=== PATIENT | female | born 1970 | race African-American/Black ===

== ENCOUNTER 2024-04-26 14:37 | Emergency (ER) | payer MEDICAID ==
[~2024-04-26] VITALS: Ht 175.3 cm; Wt 150.0 kg
[2024-04-26 14:39] VITALS: BP 172/96; RESP 18; TEMP 97.5; O2SAT 98
[2024-04-26] MEDS: buprenorphine/naloxone 8MG-2MG SUBlingual film SL ONE (16:29)
== END 2024-04-26 16:32 | disposition home or self-care (01) ==
LOC: ER 14:38
DX: Z51.81 Encounter for therapeutic drug level monitoring (principal); Z79.899 Other long term (current) drug therapy
CPT/HCPCS: 99282

== ENCOUNTER 2024-07-11 12:55 | Inpatient (IN) | payer MEDICAID ==
[~2024-07-11] VITALS: Ht 177.8 cm; Wt 147.2 kg
[2024-07-11 14:34] LABS: BASOPHILS # (AUTO) 0.1 X10'3 (0-0.2); BASOPHILS % (AUTO) 0.9 % (0-1); EOSINOPHILS # (AUTO) 0.4 X10'3 (0-0.9); EOSINOPHILS % (AUTO) 5.2 % (0-6); HEMATOCRIT 49.1 % (35.0-45.0); HEMOGLOBIN 16.1 g/dl (12.0-16.0); LYMPHOCYTES # (AUTO) 2.2 X10'3 (1.1-4.8); LYMPHOCYTES % (AUTO) 31.4 % (21-51); MEAN CORPUSCULAR HGB CONC 32.7 g/dL (33.0-36.5); MEAN CORPUSCULAR VOLUME 82.5 FL (78-98); MEAN PLATELET VOLUME 7.9 FL (7.4-10.4); MONOCYTES # (AUTO) 0.7 X10'3 (0-0.9); MONOCYTES % (AUTO) 9.4 % (2-12); NEUTROPHILS # (AUTO) 3.7 X10'3 (1.8-7.7); NEUTROPHILS % (AUTO) 53.1 % (42-75); PLATELET COUNT 261 X10'3 (140-440); RED BLOOD COUNT 5.95 X10'6 (4.20-5.60); RED CELL DISTRIBUTION WIDTH 14.2 % (11.5-14.5)
[2024-07-11 14:50] LABS: ALANINE AMINOTRANSFERASE 52 U/L (12-78); ALBUMIN 3.4 G/DL (3.4-5.0); ALBUMIN/GLOBULIN RATIO 0.8 (1.1-1.5); ALKALINE PHOSPHATASE 139 IU/L (46-116); ANION GAP 3 (8-16); ASPARTATE AMINO TRANSFERASE 35 U/L (10-37); BILIRUBIN,TOTAL 0.4 MG/DL (0.1-1.0); BLOOD UREA NITROGEN 12 MG/DL (7-18); BUN/CREATININE RATIO 16.7 (10.0-20.0); CHLORIDE 105 MMOL/L (99-107); CREATININE 0.72 MG/DL (0.40-0.90); GLUCOSE 97 MG/DL (70-104); LIPASE 24 U/L (16-77); POTASSIUM 4.4 MMOL/L (3.5-5.1); SODIUM 141 MMOL/L (135-145); TOTAL CARBON DIOXIDE 33.1 MMOL/L (24-32); TOTAL PROTEIN 7.7 G/DL (6.4-8.2); eCRCL 98 ML/MIN; eGFR > 90 ML/MIN
[2024-07-11 15:43] LABS: BILIRUBIN,URINE NEGATIVE (Neg); COLOR,URINE YELLOW (Yellow); GLUCOSE, URINE NEGATIVE (Neg); KETONES,URINE NEGATIVE (Neg); LEUKOCYTE ESTERASE ,URINE NEGATIVE (Neg); NITRITES, URINE NEGATIVE (Neg); OCCULT BLOOD,URINE NEGATIVE (Neg); PH,URINE 5.5 (4.8-8.0); PROTEIN,URINE NEGATIVE (Neg); URINE HCG NEGATIVE (NEG); UROBILINOGEN,URINE 0.2 E.U/dL (0.2-1.0)
[2024-07-11 16:01] LABS: CLARITY,URINE SLIGHTLY CLOUDY (Clear); UA COLLECTION TYPE CLN CATCH MIDSTREAM
[2024-07-11 16:05] LABS: BACTERIA,URINE 1+ /HPF (Neg); RBC,URINE 0-2 /HPF (0-2); SQUAMOUS EPITHELIAL CELL,UR MANY /LPF (FEW)
[2024-07-11 16:06] LABS: MUCUS STRANDS MODERATE /LPF (Neg)
[2024-07-11] MEDS: ketorolac trometh 30MG/ML vial 30 MG/ML VIAL IM ONE (16:08)
[2024-07-11] MEDS: dicyclomine 10 MG capsule PO ONE (16:08)
[2024-07-11 16:21] LABS: APTT 28 SECONDS (22-32); PROTHROMBIN TIME 10.4 SECONDS (9.0-12.0)
[2024-07-11] MEDS ORDERED: magnesium Cl slow-release 64mg tablet PO PRN (17:55)
[2024-07-11] MEDS ORDERED: magnesium sulf-water 4G/100mL 100 ML IV PRN (17:55)
[2024-07-11] MEDS ORDERED: potassium Cl 20 mEq SR tablet PO PRN ×2 (17:55)
[2024-07-11] MEDS ORDERED: potassium Cl 40MEQ/1/2NS 520ml 520 ML IV PRN (17:55)
[2024-07-11] MEDS ORDERED: ondansetron/PF 4mg/2ml inj IV PRN (17:55)
[2024-07-11] MEDS ORDERED: mag hydrox/Alum hydrox/simeth 30ml oral suspension PO PRN (17:55)
[2024-07-11] MEDS ORDERED: magnesium hydroxide 30ml (MOM) UD suspension PO PRN (17:55)
[2024-07-11] MEDS ORDERED: magnesium sulf-water 2g/50mL 50 ML IV PRN (17:55)
[2024-07-11] MEDS ORDERED: acetaminophen 325mg tablet PO PRN (17:55)
[2024-07-11] MEDS: piperacillin/tazo 3.375gm/50ml 50 ML IV ONE ×2 (17:58)
[2024-07-11 18:25] LABS: HEMOGLOBIN A1C 5.8 % (4.5-6.2)
[2024-07-11] MEDS ORDERED: METF-517 PO (19:32)
[2024-07-11] MEDS ORDERED: BUPR8TAB4 SL (19:32)
[2024-07-11] MEDS ORDERED: BUPR-561 (19:32)
[2024-07-11] MEDS ORDERED: FLUO40CA (19:32)
[2024-07-11] MEDS ORDERED: GLEC1TAB (19:32)
[2024-07-11] MEDS ORDERED: LOSA50TA64 (19:32)
[2024-07-11] MEDS: K and/or MAG REPLACEMENT MC SCH (20:00)
[2024-07-11] MEDS: docusate sod 100mg capsule PO SCH (20:00)
[2024-07-11] MEDS: morphine 2 MG/ML inj. syringe IV PRN (20:33)
[2024-07-11] MEDS: dextrose 5%-1/2 normal saline 1,000 ML IV SCH (20:35)
[2024-07-11 21:00] VITALS: BP 151/88; PULSE 57; RESP 16; RESP 20; TEMP 97.3; O2SAT 96; O2SAT 99
[2024-07-12] MEDS: piperacillin/tazo 4.5gm/100ml 100 ML IV SCH (00:28)
[2024-07-12 05:34] LABS: BASOPHILS % (AUTO) 0.1 % (0-1); EOSINOPHILS # (AUTO) 0.3 X10'3 (0-0.9); EOSINOPHILS % (AUTO) 5.7 % (0-6); HEMATOCRIT 46.6 % (35.0-45.0); HEMOGLOBIN 15.4 g/dl (12.0-16.0); LYMPHOCYTES # (AUTO) 2.1 X10'3 (1.1-4.8); LYMPHOCYTES % (AUTO) 35.2 % (21-51); MEAN CORPUSCULAR HEMOGLOBIN 27.2 PG (27.0-31.0); MEAN CORPUSCULAR VOLUME 82.4 FL (78-98); MEAN PLATELET VOLUME 7.6 FL (7.4-10.4); MONOCYTES # (AUTO) 0.5 X10'3 (0-0.9); MONOCYTES % (AUTO) 8.1 % (2-12); NEUTROPHILS % (AUTO) 50.9 % (42-75); PLATELET COUNT 237 X10'3 (140-440); RED BLOOD COUNT 5.66 X10'6 (4.20-5.60); RED CELL DISTRIBUTION WIDTH 13.6 % (11.5-14.5)
[2024-07-12 05:47] LABS: ALANINE AMINOTRANSFERASE 45 U/L (12-78); ALBUMIN 3.1 G/DL (3.4-5.0); ALBUMIN/GLOBULIN RATIO 0.8 (1.1-1.5); ALKALINE PHOSPHATASE 120 IU/L (46-116); ANION GAP 7 (8-16); ASPARTATE AMINO TRANSFERASE 39 U/L (10-37); BILIRUBIN,TOTAL 0.7 MG/DL (0.1-1.0); BLOOD UREA NITROGEN 12 MG/DL (7-18); BUN/CREATININE RATIO 13.3 (10.0-20.0); CALCIUM 8.8 MG/DL (8.5-10.1); CHLORIDE 106 MMOL/L (99-107); CHOL/HDL RATIO 2.8 (0.00-4.99); CHOLESTEROL 167 MG/DL (0-200); GLUCOSE 97 MG/DL (70-104); HDL CHOLESTEROL 59 MG/DL (35-60); LDL CHOLESTEROL 91 MG/DL (50-100); MAGNESIUM 1.7 MG/DL (1.5-2.4); SODIUM 142 MMOL/L (135-145); TOTAL CARBON DIOXIDE 29.5 MMOL/L (24-32); TOTAL PROTEIN 7.2 G/DL (6.4-8.2); TRIGLYCERIDES 101 MG/DL (20-135); eCRCL 78 ML/MIN; eGFR 79 ML/MIN
[2024-07-12 06:00] VITALS: BP 140/80; PULSE 80; RESP 16; TEMP 97.8; O2SAT 95
[2024-07-12] MEDS: enoxaparin 40mg/0.4ml syringe SUBCUT SCH (08:00)
[2024-07-12] MEDS: morphine 2 MG/ML inj. syringe IV PRN (09:40)
[2024-07-12] MEDS: nicotine 14mg patch - 24hr TD SCH (10:47)
[2024-07-12] MEDS: FLUoxetine 20mg capsule PO SCH (10:48)
[2024-07-12] MEDS: BUPROPION HCL 150MG XL 24 HR 150 MG TAB PO SCH (10:48)
[2024-07-12 10:53] LABS: BILIRUBIN,URINE NEGATIVE (Neg); CLARITY,URINE CLEAR (Clear); COLOR,URINE YELLOW (Yellow); GLUCOSE, URINE NEGATIVE (Neg); KETONES,URINE NEGATIVE (Neg); LEUKOCYTE ESTERASE ,URINE NEGATIVE (Neg); NITRITES, URINE NEGATIVE (Neg); OCCULT BLOOD,URINE NEGATIVE (Neg); PROTEIN,URINE NEGATIVE (Neg); UROBILINOGEN,URINE 0.2 E.U/dL (0.2-1.0)
[2024-07-12 11:01] LABS: UA COLLECTION TYPE NON-SPECIFIED
[2024-07-12 11:08] VITALS: BP 137/95; PULSE 58; RESP 16; TEMP 98.2; O2SAT 93
[2024-07-12] MEDS: metFORMIN 500mg tablet PO SCH (12:00)
[2024-07-12] MEDS: BUPRENORPHINE HCL 8 MG SL SCH (13:00)
[2024-07-12 18:00] VITALS: BP 145/82; PULSE 64; RESP 16; TEMP 98.5; O2SAT 94
[2024-07-12] MEDS: HYDROcodone/acetaminophen 5mg/325mg tablet PO PRN (21:06)
[2024-07-12 22:00] VITALS: BP 153/86; PULSE 59; RESP 16; TEMP 98.6; O2SAT 98
[2024-07-13] VITALS (8 sets, daily range): BP systolic 144–175; BP diastolic 65–111; PULSE 54–83; RESP 10–18; TEMP 97–98.8; O2SAT 91–99
[2024-07-13 04:59] LABS: BASOPHILS # (AUTO) 0.1 X10'3 (0-0.2); EOSINOPHILS # (AUTO) 0.3 X10'3 (0-0.9); EOSINOPHILS % (AUTO) 5.5 % (0-6); HEMATOCRIT 47.1 % (35.0-45.0); HEMOGLOBIN 15.7 g/dl (12.0-16.0); LYMPHOCYTES % (AUTO) 31.8 % (21-51); MEAN CORPUSCULAR HEMOGLOBIN 27.3 PG (27.0-31.0); MEAN CORPUSCULAR HGB CONC 33.4 g/dL (33.0-36.5); MEAN CORPUSCULAR VOLUME 81.7 FL (78-98); MEAN PLATELET VOLUME 7.7 FL (7.4-10.4); MONOCYTES # (AUTO) 0.4 X10'3 (0-0.9); MONOCYTES % (AUTO) 7.2 % (2-12); NEUTROPHILS # (AUTO) 3.4 X10'3 (1.8-7.7); NEUTROPHILS % (AUTO) 54.5 % (42-75); PLATELET COUNT 239 X10'3 (140-440); RED BLOOD COUNT 5.76 X10'6 (4.20-5.60); RED CELL DISTRIBUTION WIDTH 13.9 % (11.5-14.5); WHITE BLOOD COUNT 6.2 X10'3 (4.5-11.0)
[2024-07-13 05:12] LABS: ALANINE AMINOTRANSFERASE 49 U/L (12-78); ALBUMIN 3.3 G/DL (3.4-5.0); ALBUMIN/GLOBULIN RATIO 0.7 (1.1-1.5); ALKALINE PHOSPHATASE 127 IU/L (46-116); ANION GAP 6 (8-16); ASPARTATE AMINO TRANSFERASE 33 U/L (10-37); BILIRUBIN,TOTAL 0.6 MG/DL (0.1-1.0); BLOOD UREA NITROGEN 13 MG/DL (7-18); BUN/CREATININE RATIO 16.7 (10.0-20.0); CHLORIDE 104 MMOL/L (99-107); CREATININE 0.78 MG/DL (0.40-0.90); GLUCOSE 96 MG/DL (70-104); MAGNESIUM 1.9 MG/DL (1.5-2.4); POTASSIUM 4.1 MMOL/L (3.5-5.1); SODIUM 139 MMOL/L (135-145); TOTAL CARBON DIOXIDE 29.2 MMOL/L (24-32); TOTAL PROTEIN 7.8 G/DL (6.4-8.2); eCRCL 90 ML/MIN; eGFR > 90 ML/MIN
[2024-07-13] MEDS: HYDROcodone/acetaminophen 10/325mg tab PO PRN (08:14)
[2024-07-13 15:15] LABS: INR 1.1 INR; PROTHROMBIN TIME 11.2 SECONDS (9.0-12.0)
[2024-07-13] MEDS: SINCALIDE IV ONE (21:00)
[2024-07-13] MEDS: NORMAL SALINE IV ONE (21:00)
[2024-07-13] MEDS: ringers solution, lacted 1,000 ML IV SCH (21:30)
[2024-07-13] MEDS ORDERED: HYDROmorphone/PF 0.2 MG/ML SYRINGE IV PRN (21:30)
[2024-07-13] MEDS ORDERED: morphine 2 MG/ML inj. syringe IV PRN (21:30)
[2024-07-13] MEDS ORDERED: labetalol 20mg/4ml (5mg/ml) syringe IV PRN (21:30)
[2024-07-13] MEDS ORDERED: hydrALAZINE 20mg/ml inj. IV PRN (21:30)
[2024-07-13] MEDS ORDERED: meperidine/PF 25mg/ml syringe IV PRN (21:30)
[2024-07-13] MEDS ORDERED: ondansetron/PF 4mg/2ml inj IV PRN ×2 (21:30→23:20)
[2024-07-13] MEDS ORDERED: proCHLORperazine 10 MG/2 ml inj IV PRN (21:30)
[2024-07-13] MEDS ORDERED: sevoflurane 250ml liquid IH ONE (21:44)
[2024-07-13] MEDS ORDERED: midazolam 1 mg/ML 2ml injection ONE (21:51)
[2024-07-13] MEDS ORDERED: rocuronium 10mg/ml inj IV ONE ×2 (22:04→22:05)
[2024-07-13] MEDS ORDERED: ondansetron/PF 4mg/2ml inj ONE (22:04)
[2024-07-13] MEDS ORDERED: dexamethasone sod phosphate 4mg/ml inj. ONE (22:04)
[2024-07-13] MEDS ORDERED: fentaNYL /PF 50mcg/ml 5ml ampule ONE (22:04)
[2024-07-13] MEDS ORDERED: LIDOcaine 2% (20mg/ml) 5ml vial ONE (22:05)
[2024-07-13] MEDS ORDERED: propofol inj 20 ML IV ONE (22:05)
[2024-07-13] MEDS ORDERED: BUPIVAcaine/PF 2.5mg/ml (0.25%) 10ml vial ONE (22:39)
[2024-07-13] MEDS ORDERED: ceFOXitin 1000 MG inj ONE ×2 (22:55)
[2024-07-13] MEDS ORDERED: neostigmine methylsulfate 1 MG/ML 10ml vial ONE (22:59)
[2024-07-13] MEDS ORDERED: glycopyrrolate 0.2mg/ml inj ONE (22:59)
[2024-07-13] MEDS: BUPIVAcaine/PF 2.5 mg/ml (0.25%) 30ml vial IJ ONE (23:15)
[2024-07-13] MEDS ORDERED: HYDROcodone/acetaminophen 10/325mg tab PO PRN (23:20)
[2024-07-13] MEDS ORDERED: naloxone 0.4 mg/ml inj IV PRN (23:20)
[2024-07-13] MEDS: HYDROmorphone/PF 0.2 MG/ML SYRINGE IV PRN (23:30)
[2024-07-13] MEDS: acetaminophen 1,000mg/100ml IV 100 ML IV PRN (23:30)
[2024-07-13] MEDS: morphine 4 MG/ML inj SYRINge IV PRN (23:44)
[2024-07-14] VITALS (14 sets, daily range): BP systolic 105–164; BP diastolic 53–100; PULSE 68–77; RESP 15–28; TEMP 97.8–99; O2SAT 91–97
[2024-07-14] MEDS: ketorolac trometh 30MG/ML vial 30 MG/ML VIAL IV ONE
[2024-07-14] MEDS: HYDROmorphone inj. 0.5 MG/0.5 ML DISP.SYRIN IV PRN (03:34)
[2024-07-14] MEDS: ketorolac trometh 30MG/ML vial 30 MG/ML VIAL IV SCH (05:44)
[2024-07-14 06:05] LABS: BASOPHILS % (AUTO) 0.3 % (0-1); EOSINOPHILS % (AUTO) 0.2 % (0-6); HEMATOCRIT 46.4 % (35.0-45.0); HEMOGLOBIN 15.6 g/dl (12.0-16.0); LYMPHOCYTES # (AUTO) 0.8 X10'3 (1.1-4.8); LYMPHOCYTES % (AUTO) 8.7 % (21-51); MEAN CORPUSCULAR HEMOGLOBIN 27.5 PG (27.0-31.0); MEAN CORPUSCULAR HGB CONC 33.7 g/dL (33.0-36.5); MEAN CORPUSCULAR VOLUME 81.5 FL (78-98); MONOCYTES # (AUTO) 0.1 X10'3 (0-0.9); MONOCYTES % (AUTO) 1.5 % (2-12); NEUTROPHILS # (AUTO) 7.7 X10'3 (1.8-7.7); NEUTROPHILS % (AUTO) 89.3 % (42-75); PLATELET COUNT 250 X10'3 (140-440); RED BLOOD COUNT 5.69 X10'6 (4.20-5.60); RED CELL DISTRIBUTION WIDTH 13.7 % (11.5-14.5); WHITE BLOOD COUNT 8.6 X10'3 (4.5-11.0)
[2024-07-14 06:19] LABS: ALANINE AMINOTRANSFERASE 53 U/L (12-78); ALBUMIN 3.3 G/DL (3.4-5.0); ALBUMIN/GLOBULIN RATIO 0.8 (1.1-1.5); ALKALINE PHOSPHATASE 119 IU/L (46-116); ANION GAP 7 (8-16); ASPARTATE AMINO TRANSFERASE 54 U/L (10-37); BILIRUBIN,TOTAL 0.6 MG/DL (0.1-1.0); BLOOD UREA NITROGEN 12 MG/DL (7-18); CALCIUM 8.9 MG/DL (8.5-10.1); CHLORIDE 102 MMOL/L (99-107); CREATININE 0.86 MG/DL (0.40-0.90); GLUCOSE 138 MG/DL (70-104); MAGNESIUM 1.7 MG/DL (1.5-2.4); POTASSIUM 4.3 MMOL/L (3.5-5.1); SODIUM 137 MMOL/L (135-145); TOTAL CARBON DIOXIDE 28.3 MMOL/L (24-32); TOTAL PROTEIN 7.7 G/DL (6.4-8.2); eCRCL 82 ML/MIN; eGFR 84 ML/MIN
[2024-07-15] VITALS (7 sets, daily range): BP systolic 113–132; BP diastolic 61–82; PULSE 60–66; RESP 15–18; TEMP 97.9–98.7; O2SAT 95–97
[2024-07-15 05:54] LABS: ALANINE AMINOTRANSFERASE 61 U/L (12-78); ALBUMIN 3.4 G/DL (3.4-5.0); ALBUMIN/GLOBULIN RATIO 0.8 (1.1-1.5); ALKALINE PHOSPHATASE 114 IU/L (46-116); ANION GAP 6 (8-16); ASPARTATE AMINO TRANSFERASE 54 U/L (10-37); BILIRUBIN,TOTAL 0.6 MG/DL (0.1-1.0); BLOOD UREA NITROGEN 14 MG/DL (7-18); BUN/CREATININE RATIO 14.1 (10.0-20.0); CHLORIDE 103 MMOL/L (99-107); CREATININE 0.99 MG/DL (0.40-0.90); GLUCOSE 101 MG/DL (70-104); MAGNESIUM 2.1 MG/DL (1.5-2.4); POTASSIUM 3.9 MMOL/L (3.5-5.1); SODIUM 139 MMOL/L (135-145); TOTAL CARBON DIOXIDE 29.6 MMOL/L (24-32); TOTAL PROTEIN 7.8 G/DL (6.4-8.2); eCRCL 71 ML/MIN; eGFR 71 ML/MIN
[2024-07-15 06:57] LABS: BASOPHILS # (AUTO) 0.1 X10'3 (0-0.2); BASOPHILS % (AUTO) 1.1 % (0-1); EOSINOPHILS # (AUTO) 0.1 X10'3 (0-0.9); EOSINOPHILS % (AUTO) 0.5 % (0-6); HEMATOCRIT 42.6 % (35.0-45.0); HEMOGLOBIN 13.9 g/dl (12.0-16.0); LYMPHOCYTES # (AUTO) 2.5 X10'3 (1.1-4.8); LYMPHOCYTES % (AUTO) 23.5 % (21-51); MEAN CORPUSCULAR HEMOGLOBIN 26.9 PG (27.0-31.0); MEAN CORPUSCULAR HGB CONC 32.6 g/dL (33.0-36.5); MEAN CORPUSCULAR VOLUME 82.5 FL (78-98); MEAN PLATELET VOLUME 7.8 FL (7.4-10.4); MONOCYTES # (AUTO) 0.9 X10'3 (0-0.9); MONOCYTES % (AUTO) 8.6 % (2-12); NEUTROPHILS # (AUTO) 7.1 X10'3 (1.8-7.7); NEUTROPHILS % (AUTO) 66.3 % (42-75); PLATELET COUNT 235 X10'3 (140-440); RED BLOOD COUNT 5.17 X10'6 (4.20-5.60); RED CELL DISTRIBUTION WIDTH 13.9 % (11.5-14.5); WHITE BLOOD COUNT 10.7 X10'3 (4.5-11.0)
[2024-07-15] MEDS ORDERED: HYDROmorphone inj. 0.5 MG/0.5 ML DISP.SYRIN IM ONE (11:50)
[2024-07-16 06:44] LABS: ALANINE AMINOTRANSFERASE 49 U/L (12-78); ALBUMIN/GLOBULIN RATIO 0.8 (1.1-1.5); ALKALINE PHOSPHATASE 95 IU/L (46-116); ANION GAP 7 (8-16); ASPARTATE AMINO TRANSFERASE 45 U/L (10-37); BILIRUBIN,TOTAL 0.5 MG/DL (0.1-1.0); BLOOD UREA NITROGEN 14 MG/DL (7-18); BUN/CREATININE RATIO 15.1 (10.0-20.0); CALCIUM 8.7 MG/DL (8.5-10.1); CHLORIDE 108 MMOL/L (99-107); CREATININE 0.93 MG/DL (0.40-0.90); GLUCOSE 100 MG/DL (70-104); POTASSIUM 3.9 MMOL/L (3.5-5.1); SODIUM 144 MMOL/L (135-145); TOTAL CARBON DIOXIDE 28.9 MMOL/L (24-32); TOTAL PROTEIN 6.9 G/DL (6.4-8.2); eCRCL 76 ML/MIN; eGFR 76 ML/MIN
[2024-07-16 06:56] LABS: BASOPHILS # (AUTO) 0.1 X10'3 (0-0.2); EOSINOPHILS # (AUTO) 0.4 X10'3 (0-0.9); NEUTROPHILS # (AUTO) 4.2 X10'3 (1.8-7.7)
[2024-07-16 06:57] LABS: BASOPHILS % (AUTO) 1.2 % (0-1); EOSINOPHILS % (AUTO) 4.7 % (0-6); HEMATOCRIT 43.1 % (35.0-45.0); LYMPHOCYTES # (AUTO) 3.1 X10'3 (1.1-4.8); LYMPHOCYTES % (AUTO) 36.9 % (21-51); MEAN CORPUSCULAR HEMOGLOBIN 26.8 PG (27.0-31.0); MEAN CORPUSCULAR HGB CONC 32.5 g/dL (33.0-36.5); MEAN CORPUSCULAR VOLUME 82.6 FL (78-98); MEAN PLATELET VOLUME 8.4 FL (7.4-10.4); MONOCYTES # (AUTO) 0.6 X10'3 (0-0.9); MONOCYTES % (AUTO) 7.6 % (2-12); NEUTROPHILS % (AUTO) 49.6 % (42-75); PLATELET COUNT 239 X10'3 (140-440); RED BLOOD COUNT 5.21 X10'6 (4.20-5.60); WHITE BLOOD COUNT 8.4 X10'3 (4.5-11.0)
[2024-07-16 07:20] VITALS: BP 171/99; PULSE 57; RESP 13; TEMP 97.2; O2SAT 99
[2024-07-16 08:41] VITALS: RESP 18
== END 2024-07-16 11:33 | disposition home or self-care (01) | DRG 263 ==
LOC: ER 12:55 → ED HOLD 18:01 → SUR 3N 20:00
PROVIDERS: ADMIT Internal Medicine; ATTEND Internal Medicine
PROC: 8E0W4CZ Robotic Assisted Procedure of Trunk Region, Percutaneous Endoscopic Approach (ICD-10-PCS; 2024-07-13)
PROC: CF1C1ZZ Planar Nuclear Medicine Imaging of Hepatobiliary System, All using Technetium 99m (Tc-99m) (ICD-10-PCS; 2024-07-13)
PROC: 0FT44ZZ Resection of Gallbladder, Percutaneous Endoscopic Approach (ICD-10-PCS; principal; 2024-07-13 21:44)
DX: K80.00 Calculus of gallbladder with acute cholecystitis without obstruction (principal); E66.01 Morbid (severe) obesity due to excess calories; F32.A Depression, unspecified; K82.8 Other specified diseases of gallbladder; R73.03 Prediabetes; Z72.0 Tobacco use; Z68.42 Body mass index [BMI] 45.0-49.9, adult
CPT/HCPCS: 36415; 71045; 74176; 76700; 78226; 80053; 80061; 81001; 81003; 81025; 82948; 83036; 83690; 83735; 85025; 85610; 85730; 87081; 93005; 99285; A4215; A4615; A4618; A6449; A7000; A9537; G0378; J0131; J0694; J1100; J1171; J1650; J1885; J2003; J2250; J2270; J2405; J2543; J2704; J2710; J3010; J3490; J7120

== ENCOUNTER 2024-07-27 18:27 | Inpatient (IN) | payer MEDICAID ==
[~2024-07-27] VITALS: Ht 177.8 cm; Wt 134.0 kg
[~2024-07-27 18:27] MED LIST: BUPR-561; BUPR8TAB4 SL; FLUO40CA; GLEC1TAB; LOSA50TA64; METF-517 PO
[2024-07-27 18:53] LABS: BASOPHILS # (AUTO) 0.1 X10'3 (0-0.2); BASOPHILS % (AUTO) 0.8 % (0-1); EOSINOPHILS # (AUTO) 0.6 X10'3 (0-0.9); EOSINOPHILS % (AUTO) 6.2 % (0-6); HEMATOCRIT 42.5 % (35.0-45.0); HEMOGLOBIN 14.2 g/dl (12.0-16.0); LYMPHOCYTES # (AUTO) 3.1 X10'3 (1.1-4.8); LYMPHOCYTES % (AUTO) 31.5 % (21-51); MEAN CORPUSCULAR HEMOGLOBIN 27.2 PG (27.0-31.0); MEAN CORPUSCULAR HGB CONC 33.4 g/dL (33.0-36.5); MEAN CORPUSCULAR VOLUME 81.4 FL (78-98); MONOCYTES # (AUTO) 0.9 X10'3 (0-0.9); MONOCYTES % (AUTO) 9.6 % (2-12); NEUTROPHILS # (AUTO) 5.1 X10'3 (1.8-7.7); NEUTROPHILS % (AUTO) 51.9 % (42-75); PLATELET COUNT 330 X10'3 (140-440); RED BLOOD COUNT 5.22 X10'6 (4.20-5.60); RED CELL DISTRIBUTION WIDTH 13.6 % (11.5-14.5); WHITE BLOOD COUNT 9.9 X10'3 (4.5-11.0)
[2024-07-27 19:09] LABS: ALANINE AMINOTRANSFERASE 18 U/L (12-78); ALBUMIN 3.4 G/DL (3.4-5.0); ALBUMIN/GLOBULIN RATIO 0.7 (1.1-1.5); ALKALINE PHOSPHATASE 124 IU/L (46-116); ANION GAP 5 (8-16); ASPARTATE AMINO TRANSFERASE 12 U/L (10-37); BILIRUBIN,TOTAL 0.5 MG/DL (0.1-1.0); BLOOD UREA NITROGEN 12 MG/DL (7-18); BUN/CREATININE RATIO 14.5 (10.0-20.0); CALCIUM 8.8 MG/DL (8.5-10.1); CHLORIDE 105 MMOL/L (99-107); CREATININE 0.83 MG/DL (0.40-0.90); GLUCOSE 112 MG/DL (70-104); LIPASE 23 U/L (16-77); POTASSIUM 4.1 MMOL/L (3.5-5.1); SODIUM 140 MMOL/L (135-145); TOTAL CARBON DIOXIDE 29.9 MMOL/L (24-32); TOTAL PROTEIN 8.4 G/DL (6.4-8.2); eCRCL 85 ML/MIN; eGFR 87 ML/MIN
[2024-07-27] MEDS: acetaminophen 325mg tablet PO ONE (19:25)
[2024-07-27] MEDS: ibuprofen tablet 400 MG TABLET PO ONE (19:25)
[2024-07-27] MEDS: traMADol 50MG tablet PO ONE (19:26)
[2024-07-27 19:40] LABS: URINE HCG NEGATIVE (NEG)
[2024-07-27 19:42] LABS: BILIRUBIN,URINE NEGATIVE (Neg); CLARITY,URINE CLEAR (Clear); COLOR,URINE YELLOW (Yellow); GLUCOSE, URINE NEGATIVE (Neg); KETONES,URINE NEGATIVE (Neg); LEUKOCYTE ESTERASE ,URINE NEGATIVE (Neg); NITRITES, URINE NEGATIVE (Neg); OCCULT BLOOD,URINE NEGATIVE (Neg); PROTEIN,URINE NEGATIVE (Neg)
[2024-07-27] MEDS ORDERED: iohexol 300mg/ml 100ml inj. ONE (19:43)
[2024-07-27 19:47] LABS: UA COLLECTION TYPE CLN CATCH MIDSTREAM
[2024-07-27] MEDS ORDERED: magnesium sulf-water 2g/50mL 50 ML IV PRN (22:00)
[2024-07-27] MEDS ORDERED: mag hydrox/Alum hydrox/simeth 30ml oral suspension PO PRN (22:00)
[2024-07-27] MEDS ORDERED: potassium Cl 40MEQ/1/2NS 520ml 520 ML IV PRN (22:00)
[2024-07-27] MEDS ORDERED: magnesium Cl slow-release 64mg tablet PO PRN (22:00)
[2024-07-27] MEDS ORDERED: potassium Cl 20 mEq SR tablet PO PRN ×2 (22:00)
[2024-07-27] MEDS ORDERED: acetaminophen 325mg tablet PO PRN (22:00)
[2024-07-27] MEDS ORDERED: docusate sod 100mg capsule PO PRN (22:00)
[2024-07-27] MEDS ORDERED: magnesium sulf-water 4G/100mL 100 ML IV PRN (22:00)
[2024-07-27] MEDS ORDERED: ondansetron/PF 4mg/2ml inj IV PRN (22:00)
[2024-07-27] MEDS ORDERED: morphine 2 MG/ML inj. syringe IV PRN (22:05)
[2024-07-27 22:45] LABS: APTT 28 SECONDS (22-32); PROTHROMBIN TIME 10.5 SECONDS (9.0-12.0)
[2024-07-27] MEDS: famotidine 20mg tablet PO SCH (23:07)
[2024-07-27] MEDS: losartan 25mg tablet PO SCH (23:07)
[2024-07-28 01:58] LABS: BASOPHILS % (AUTO) 0.2 % (0-1); EOSINOPHILS # (AUTO) 0.6 X10'3 (0-0.9); EOSINOPHILS % (AUTO) 6.8 % (0-6); HEMOGLOBIN 13.3 g/dl (12.0-16.0); LYMPHOCYTES # (AUTO) 2.4 X10'3 (1.1-4.8); LYMPHOCYTES % (AUTO) 27.4 % (21-51); MEAN CORPUSCULAR HEMOGLOBIN 26.5 PG (27.0-31.0); MEAN CORPUSCULAR HGB CONC 32.4 g/dL (33.0-36.5); MEAN CORPUSCULAR VOLUME 81.9 FL (78-98); MEAN PLATELET VOLUME 7.2 FL (7.4-10.4); MONOCYTES # (AUTO) 0.7 X10'3 (0-0.9); MONOCYTES % (AUTO) 8.4 % (2-12); NEUTROPHILS # (AUTO) 4.9 X10'3 (1.8-7.7); NEUTROPHILS % (AUTO) 57.2 % (42-75); PLATELET COUNT 321 X10'3 (140-440); RED BLOOD COUNT 5.01 X10'6 (4.20-5.60); RED CELL DISTRIBUTION WIDTH 13.7 % (11.5-14.5); WHITE BLOOD COUNT 8.7 X10'3 (4.5-11.0)
[2024-07-28 02:18] LABS: ALANINE AMINOTRANSFERASE 19 U/L (12-78); ALBUMIN 3.1 G/DL (3.4-5.0); ALBUMIN/GLOBULIN RATIO 0.6 (1.1-1.5); ALKALINE PHOSPHATASE 109 IU/L (46-116); ANION GAP 2 (8-16); ASPARTATE AMINO TRANSFERASE 12 U/L (10-37); BILIRUBIN,TOTAL 0.5 MG/DL (0.1-1.0); BLOOD UREA NITROGEN 14 MG/DL (7-18); BUN/CREATININE RATIO 15.7 (10.0-20.0); CALCIUM 8.7 MG/DL (8.5-10.1); CHLORIDE 104 MMOL/L (99-107); CREATININE 0.89 MG/DL (0.40-0.90); GLUCOSE 113 MG/DL (70-104); SODIUM 140 MMOL/L (135-145); TOTAL CARBON DIOXIDE 33.6 MMOL/L (24-32); TOTAL PROTEIN 7.9 G/DL (6.4-8.2); eCRCL 79 ML/MIN; eGFR 80 ML/MIN
[2024-07-28] MEDS: K and/or MAG REPLACEMENT MC SCH (08:00)
[2024-07-28] MEDS: heparin, porcine 5000 units/ml vial SQ SCH (08:52)
[2024-07-28] MEDS: NORMAL SALINE IV ONE (09:18)
[2024-07-28] MEDS: SINCALIDE IV ONE (09:18)
[2024-07-28] MEDS: ipratropium/albuterol 3ml nebule NEB ONE (09:47)
[2024-07-28] MEDS: amLODIPine 5mg tablet PO ONE (09:52)
[2024-07-28] MEDS: acetaminophen 325mg tablet PO PRN (13:19)
[2024-07-28] MEDS ORDERED: BUPR8TAB4 SL (14:56)
[2024-07-28] MEDS ORDERED: HYDR-3686 PO (14:59)
[2024-07-28 15:30] VITALS: BP 145/95; PULSE 69; RESP 18; TEMP 97.4; O2SAT 96
[2024-07-28] MEDS: morphine 2 MG/ML inj. syringe IV PRN (16:36)
[2024-07-28 18:00] VITALS: BP 135/78; PULSE 67; RESP 18; TEMP 97.2; O2SAT 95
[2024-07-28 20:00] VITALS: RESP 18; O2SAT 95
[2024-07-28 22:00] VITALS: BP 106/67; PULSE 60; RESP 18; TEMP 97.8; O2SAT 98
[2024-07-29] MEDS: HYDROmorphone inj. 0.5 MG/0.5 ML DISP.SYRIN IV PRN (00:59)
[2024-07-29 06:00] VITALS: BP 136/69; PULSE 84; RESP 18; TEMP 97.9; O2SAT 96
[2024-07-29 08:20] LABS: BASOPHILS % (AUTO) 0.7 % (0-1); EOSINOPHILS # (AUTO) 0.6 X10'3 (0-0.9); EOSINOPHILS % (AUTO) 9.1 % (0-6); HEMATOCRIT 41.2 % (35.0-45.0); HEMOGLOBIN 13.5 g/dl (12.0-16.0); LYMPHOCYTES # (AUTO) 2.2 X10'3 (1.1-4.8); LYMPHOCYTES % (AUTO) 33.5 % (21-51); MEAN CORPUSCULAR HEMOGLOBIN 26.7 PG (27.0-31.0); MEAN CORPUSCULAR HGB CONC 32.8 g/dL (33.0-36.5); MEAN CORPUSCULAR VOLUME 81.5 FL (78-98); MEAN PLATELET VOLUME 7.4 FL (7.4-10.4); MONOCYTES # (AUTO) 0.7 X10'3 (0-0.9); MONOCYTES % (AUTO) 10.1 % (2-12); NEUTROPHILS % (AUTO) 46.6 % (42-75); PLATELET COUNT 322 X10'3 (140-440); RED BLOOD COUNT 5.05 X10'6 (4.20-5.60); RED CELL DISTRIBUTION WIDTH 13.5 % (11.5-14.5); WHITE BLOOD COUNT 6.4 X10'3 (4.5-11.0)
[2024-07-29 08:57] LABS: ALANINE AMINOTRANSFERASE 15 U/L (12-78); ALBUMIN 3.1 G/DL (3.4-5.0); ALBUMIN/GLOBULIN RATIO 0.6 (1.1-1.5); ALKALINE PHOSPHATASE 106 IU/L (46-116); ANION GAP 10 (8-16); ASPARTATE AMINO TRANSFERASE 15 U/L (10-37); BILIRUBIN,TOTAL 0.5 MG/DL (0.1-1.0); BLOOD UREA NITROGEN 14 MG/DL (7-18); BUN/CREATININE RATIO 17.5 (10.0-20.0); CHLORIDE 103 MMOL/L (99-107); GLUCOSE 95 MG/DL (70-104); POTASSIUM 4.1 MMOL/L (3.5-5.1); SODIUM 141 MMOL/L (135-145); TOTAL CARBON DIOXIDE 28.5 MMOL/L (24-32); TOTAL PROTEIN 8.1 G/DL (6.4-8.2); eCRCL 88 ML/MIN; eGFR > 90 ML/MIN
[2024-07-29 09:20] VITALS: RESP 18; O2SAT 96
[2024-07-29 10:00] VITALS: BP 128/76; PULSE 65; RESP 15; TEMP 97.5; O2SAT 91
[2024-07-29] MEDS ORDERED: HYDR-3686 PO (14:24)
== END 2024-07-29 16:34 | disposition home or self-care (01) | DRG 251 ==
LOC: ER 18:28 → ED HOLD 21:17 → ORTHO 4S 07-28 15:25
PROVIDERS: ADMIT Internal Medicine; ATTEND Internal Medicine
PROC: BW211ZZ Computerized Tomography (CT Scan) of Abdomen and Pelvis using Low Osmolar Contrast (ICD-10-PCS; principal; 2024-07-27)
PROC: CF1C1ZZ Planar Nuclear Medicine Imaging of Hepatobiliary System, All using Technetium 99m (Tc-99m) (ICD-10-PCS; 2024-07-29)
DX: R10.13 Epigastric pain (principal); K76.89 Other specified diseases of liver; B19.20 Unspecified viral hepatitis C without hepatic coma; E66.813 Obesity, class 3; F32.A Depression, unspecified; I10 Essential (primary) hypertension; R73.03 Prediabetes; Z68.41 Body mass index [BMI] 40.0-44.9, adult; Z79.899 Other long term (current) drug therapy; Z90.49 Acquired absence of other specified parts of digestive tract; Z72.0 Tobacco use
CPT/HCPCS: 36415; 71045; 74177; 78226; 80053; 81003; 81025; 83690; 83735; 84145; 85025; 85610; 85730; 99285; A6212; A9537; G0378; J1171; J1644; J2270; Q9967

== ENCOUNTER 2024-12-23 12:37 | Emergency (ER) | payer MEDICAID, SELFPAY ==
[~2024-12-23] VITALS: Ht 177.8 cm; Wt 145.4 kg
[~2024-12-23 12:37] MED LIST changes: -BUPR-561; +BUPR-726; +HYDR-3686 PO; -METF-517 PO
[2024-12-23 12:38] VITALS: BP 141/90; PULSE 82; RESP 18; TEMP 97.5; O2SAT 98
--- NOTE | 2024-12-23 14:27 | Physician Documentation ---
History of Present Illness ~ Chief Complaint: Chest Wall Pain Stated Complaint: CHEST PAIN/PRESSURE LAST NIGHT Time Seen by MD: 14:23 Primary Medical Doctor: none HPI 54-year-old female that presents to the emergency department for evaluation of persistent chest discomfort x1 day. Patient reports that she had an acute episode of chest pain associated with diaphoresis and lethargy yesterday lasting approximately 30 minutes. Reports that she has had a continued left neck pain radiating down to her shoulder multiple times this week. Patient reports that her chest pain is less than it was yesterday but is still uncomfortable. Kimberley hein denies any cardiac history she is mildly hypertensive and does smoke. Patient reports that her mother had a history of angina starting in her 50s. Medication Reconciliation Allergies: Coded Allergies: No Known Allergies (Unverified , 07/27/24) Scheduled Buprenorphine Hcl (Buprenorphine Hcl), 1 TAB SL Q6H, (Reported) Glecaprevir/Pibrentasvir (Mavyret 100-40 mg Tablet), 3 DAILY, (Reported) Losartan Potassium (Losartan Potassium), 1 DAILY, (Reported) Scheduled PRN Hydroxyzine Hcl* (Atarax*), 2 TAB PO TID PRN for anxiety Miscellaneous Medications Bupropion HCl (Bupropion Xl), (Reported) Fluoxetine Hcl (Fluoxetine Hcl), (Reported) Review of Systems ROS As stated above in the HPI, otherwise all systems are reviewed and negative. Physical Exam Vital Signs: Temperature: 97.5, Source: Temporal, Heart Rate: 82, Respiratory Rate: 18, BP: 141/90, Pulse Oximetry: 98, Weight: 145.450 Oxygen Flow Rate: 0 Physical Exam VITALS: Reviewed and as above. GENERAL: Alert, no apparent distress. HEENT: Normocephalic, atraumatic, PERRL, EOMI, dry mucosa, no erythema RESPIRATORY: Lungs clear, normal breath sounds, no respiratory distress. CHEST: No accessory muscle use, no retractions CV: Regular rate, rhythm, no murmur, No: JVD, positive mild lower extremity edema GI: Soft, non-tender, bowels sounds present, no rebound, guarding, or rigidity BACK: No CVA tenderness, or swelling MUSCULOSKELETAL No deformities, no edema SKIN: Warm and dry, no rash NEURO: Oriented x4, No motor or sensory deficit PSYCH: Normal mood and affect, no agitation Progress Results/Orders Results/Orders Orders - GLENDA,CHADWICK Leandra [employer] Chest,Two Views (12/23/24 14:34) Completed Orders - CHADWICK DOSHI [employer] Cbc/Diff (12/23/24 14:24) MG (12/23/24 14:24) PBNP (12/23/24 14:24) Chest,Two Views (12/23/24 14:34) Electrocardiogram (12/23/24 14:24) BMP (12/23/24 14:24) Hs Troponin I W Calculations (12/23/24 14:24) Hcg Serum Ql (12/23/24 14:33) Ua W/Microscopic, Cult If Ind (12/23/24 15:15) Furosemide Tablet (Lasix Tablet) (12/23/24 17:00) Vital Signs 12/23/24 12:38 Temp 97.5 Pulse 82 Resp 18 B/P (MAP) 141/90 Pulse Ox 98 O2 Flow Rate 0 Laboratory Tests Test 12/23/24 15:00 12/23/24 15:15 White Blood Count 6.9 Red Blood Count 6.02 H Hemoglobin 15.3 Hematocrit 45.8 H Mean Corpuscular Volume 76.1 L Mean Corpuscular Hemoglobin 25.4 L Mean Corpuscular Hemoglobin Concent 33.3 Red Cell Distribution Width 13.1 Platelet Count 248 Mean Platelet Volume 7.4 Neutrophils (%) (Auto) 45.0 Lymphocytes (%) (Auto) 27.8 Monocytes (%) (Auto) 10.5 Eosinophils (%) (Auto) 16.5 H Basophils (%) (Auto) 0.2 Neutrophils # (Auto) 3.1 Lymphocytes # (Auto) 1.9 Monocytes # (Auto) 0.7 Eosinophils # (Auto) 1.1 H Basophils # (Auto) 0.0 CBC Comment Sodium Level 141 Potassium Level 4.0 Chloride Level 103 Carbon Dioxide Level 29.5 Anion Gap 9 Blood Urea Nitrogen 15 Creatinine 1.19 H Estimated GFR/1.73 m2 57 BUN/Creatinine Ratio 12.6 Glucose Level 86 Calcium Level 9.7 Magnesium Level 1.6 Troponin I High Sensitivity 18 Pro-B-Type Natriuretic Peptide 229 H Albumin 3.4 Human Chorionic Gonadotropin, Qual Negative Chemistry Comments Urine Specimen Description Cln catch midstream Urine Color Dark yellow Urine Clarity Cloudy Urine pH 5.5 Urine Specific [place] >=1.030 Urine Protein 30 H Urine Glucose (UA) Negative Urine Ketones Trace H Urine Occult Blood Negative Urine Nitrite Negative Urine Bilirubin Small Urine Urobilinogen 1.0 Urine Leukocyte Esterase Negative Urine RBC 0-2 Urine WBC 0-4 Urine Squamous Epithelial Cells Many Urine Bacteria 1+ Urine Mucus Many Urine Culture Indicated Not ind Volume Urine Centrifuged 10 ml Urine Comment Medical Decision Making Findings This is a 54 y/o F patient diagnosed history of of heart failure, presenting with likely acute decompensated heart failure causing volume overload and pulmonary edema on x-ray. The etiology of the decompensation is not certain that patient has multiple risk factors. Alternative etiologies I considered include cardiac (ACS, valvular disease, arrhythmia, myocarditis/endocarditis, dissection) however given unremarkable trop, ekg, cardiac exam have low suspicio n. Also considered but low risk for respiratory cause (COPD, asthma, PE, or PNA), medication noncompliance or dietary indiscretion, alcohol or drug abuse, endocrine (thyrotoxicosis), and anemia. Patient hemodynamically stable so given lasix and discharged home with mild heart failure. Discussed absolute need to follow up with PMD or epic prelude analyst. She reports that she has a an a ppointment with her physician tomorrow. If she is unable to keep that appointment she assures us that she will return here for additional evaluation and treatment. Strict return precautions has been discussed with the patient and she reports that she understands the need to return to the emergency department if she develop any chest pain shortness a breath episodes of angina palpitations lightheadedness or increased edema in her lower extremities. Departure Impression: Primary Impression: Chest pain Additional Impressions: SOB (shortness of breath) Acute dyspnea Orthopnea CHF (congestive heart failure) Additional Instructions: This is a 54 y/o F patient diagnosed history of of heart failure, presenting with likely acute decompensated heart failure causing volume overload and pulmonary edema on x-ray. The etiology of the decompensation is not certain that patient has multiple risk factors. Alternative etiologies I considered include cardiac (ACS, valvular disease, arrhythmia, myocarditis/endocarditis, dissection) however given unremarkable trop, ekg, cardiac exam have low suspicion. Also considered but low risk for respiratory cause (COPD, asthma, PE, or PNA), medication noncompliance or dietary indiscretion, alcohol or drug abuse, endocrine (thyrotoxicosis), and anemia. Patient hemodynamically stable so given lasix and discharged home with mild heart failure. Discussed absolute need to follow up with PMD or epic prelude analyst. She reports that she has a an appointment with her physician tomorrow. If she is unable to keep that appointment she assures us that she will return here for additional evaluation and treatment. Strict return precautions has been discussed with the patient and she reports that she understands the need to return to the emergency department if she develop any chest pain shortness a breath episodes of angina palpitations lightheadedness or increased edema in her lower extremities. Departure Forms: Excuse form Work or School Excused From: Work Excuse beginning now through the following date: Dec 23, 2024 May Return but still avoid physical Activity from now until: Dec 23, 2024 May Return to full physical activity as of: Dec 23, 2024 Additional Instructions: He is the patient from work today as she was being evaluated in the emergency department please allow the patient to participate in only a light duty work while at work as she is undergoing additional diagnostics and examination this this week on an outpatient basis. Referrals: NO PRIMARY CARE PROVIDER (PCP) Education Educated: Patient Educated regarding: diagnosis, treatment, need for follow up Signature Scribe Signature: A Attestation: Scribed for Chadwick Doshi by SHIELA Rocha . 12/23/24 17:03 CHADWICK DOSHI Dec 23, 2024 14:27
--- NOTE | 2024-12-23 14:42 | ELECTROCARDIOGRAPH REPORT ---
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
--- NOTE | 2024-12-23 14:50 | RADIOLOGY REPORT ---
CHEST RADIOGRAPH Indication: CHEST PAIN Technique: Frontal and lateral view of the chest was obtained Comparison: DI CHEST,SINGLE VIEW on DOS: 07/27/24, DI CHEST,SINGLE VIEW on DOS: 07/12/24 FINDINGS: Lines and Tubes: None Lungs: Congestion Pleura: No effusion. No pneumothorax. Cardiomediastinal contours: Unremarkable Bones: Unremarkable IMPRESSION: Increased interstital prominence. This may represent pulmonary vascular congestion or viral pneumonia . Clinical correlation advised.
[2024-12-23 15:17] LABS: MEAN PLATELET VOLUME 7.4 FL (7.4-10.4); RED CELL DISTRIBUTION WIDTH 13.1 % (11.5-14.5)
[2024-12-23 15:31] LABS: LEUKOCYTE ESTERASE ,URINE NEGATIVE (Neg); OCCULT BLOOD,URINE NEGATIVE (Neg)
[2024-12-23 15:36] LABS: UA COLLECTION TYPE CLN CATCH MIDSTREAM
[2024-12-23 15:38] LABS: CREATININE 1.19 MG/DL (0.40-0.90); PRO BRAIN NATRIURETIC PEPTIDE 229 PG/ML (0-125); TOTAL CARBON DIOXIDE 29.5 MMOL/L (24-32); eCRCL 58 ML/MIN; eGFR 57 ML/MIN
[2024-12-23 15:39] LABS: MUCUS STRANDS MANY /LPF (Neg); NITRITES, URINE NEGATIVE (Neg); SQUAMOUS EPITHELIAL CELL,UR MANY /LPF (FEW)
[2024-12-23 16:04] LABS: HCG SERUM QL NEGATIVE
== END 2024-12-23 17:20 | disposition home or self-care (01) ==
LOC: ER 12:39
DX: R07.89 Other chest pain (principal); I50.9 Heart failure, unspecified; M54.2 Cervicalgia; R06.02 Shortness of breath; Z79.899 Other long term (current) drug therapy
CPT/HCPCS: 36415; 71046; 80048; 81001; 83735; 83880; 84484; 84703; 85025; 93005; 99285

== ENCOUNTER 2025-01-05 11:19 | Inpatient (IN) | payer MEDICAID, SELFPAY ==
[~2025-01-05] VITALS: Ht 177.8 cm; Wt 135.9 kg
[2025-01-05 11:24] VITALS: TEMP 98.5
--- NOTE | 2025-01-05 11:30 | ELECTROCARDIOGRAPH REPORT ---
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 Lily Perez Measurements Intervals [place] Rate: 77 P: 34 [place]: 202 QRS: 31 QRSD: 86 T: 46 QT: 375 QTc: 425 Interpretive Statements Sinus rhythm Borderline prolonged [place] interval Probable left atrial enlargement Low voltage, precordial leads Electronically Signed On 01-07-2025 5:22:[address] Lily Perez Please click the below link to view image of tracing.
--- NOTE | 2025-01-05 11:37 | Physician Documentation ---
History of Present Illness General Chief Complaint: Chest Pain Stated Complaint: CP Time Seen by MD: 11:31 Primary Medical Doctor: none History of Present Illness Initial Comments Patient is a 54-year-old female who presents to the emergency room with right- sided anterior chest pain that is pleuritic in nature. Patient also complains of shortness of breath. The patient states she was seen approximately a week and a half ago for shortness of breath and told she might have congestive heart failure. The patient was told to follow up as an outpatient. The patient has no cardiac history. The patient is a smoker. Patient has no fevers or chills. The patient states her on three in the morning this morning she developed pleuritic pleuritic right-sided chest pain. The patient denies any nausea or vomiting. Patient's symptoms are moderate and persistent. Medication Reconciliation Allergies: Coded Allergies: No Known Allergies (Unverified , 01/05/25) Scheduled Amlodipine* (Norvasc*), 2 TAB PO DAILY, (Reported) Azithromycin (Zithromax), 1 TAB PO DAILY Buprenorphine Hcl (Buprenorphine Hcl), 1 TAB SL TID, (Reported) Losartan Potassium (Cozaar), 1 TAB PO DAILY, (Reported) Venlafaxine Hcl* (Effexor*), 1 TAB PO QAM, (Reported) Scheduled PRN Albuterol Sulfate (Ventolin Hfa), 2 PUFFS INH Q4HPRN PRN for SOB or wheezing Hydroxyzine Hcl* (Atarax*), 2 TAB PO TID PRN for anxiety Miscellaneous Medications Tirzepatide (Zepbound), (Reported) Discontinued Medications Bupropion HCl (Bupropion Xl), (Reported) Discontinued Reason: Other Fluoxetine Hcl (Fluoxetine Hcl), (Reported) Discontinued Reason: Other Glecaprevir/Pibrentasvir (Mavyret 100-40 mg Tablet), 3 DAILY, (Reported) Discontinued Reason: Other Losartan Potassium (Losartan Potassium), 1 DAILY, (Reported) Discontinued Reason: Other Past Medical History Past Medical History: No Pertinent History Review of Systems All Other Systems at this time: Reviewed and Negative Physical Exam Physical Exam Vital Signs: Temperature: 98.5, Source: Oral, Heart Rate: 76, Respiratory Rate: 12, BP: 97/69, Pulse Oximetry: 93, Weight: 135.910 Physical Exam VITALS: Reviewed and as above. GENERAL: Alert, no apparent distress. HEENT: Normocephalic, atraumatic, PERRL, EOMI, dry mucosa, no erythema RESPIRATORY: Bilateral crackles at both bases. CHEST: No accessory muscle use, no retractions CV: Regular rate, rhythm, no edema, no murmur, No: JVD GI: Soft, non-tender, bowels sounds present, no rebound, guarding, or rigidity BACK: No CVA tenderness, or swelling MUSCULOSKELETAL: No deformities, no edema SKIN: Warm and dry, no rash NEURO: Oriented x4, No motor or sensory deficit PSYCH: Normal mood and affect, no agitation Progress Results/Orders Results/Orders Orders - LILY PECK MD Chest,Single View (01/05/25 11:26) Monitor (01/05/25 11:26) Saline Lock (01/05/25 11:26) Oxygen (01/05/25 11:26) Cta Chest Pe (01/05/25 ) Covid19 Binax Poc Result Entry (01/05/25 14:08) Page Hospitalist (01/05/25 14:33) Fill Out Med Reconciliation (01/05/25 14:33) Completed Orders - LILY PECK MD Chest,Single View (01/05/25 11:26) Cbc/Diff (01/05/25 11:26) BMP (01/05/25 11:26) PBNP (01/05/25 11:26) Electrocardiogram (01/05/25 11:26) Hs Troponin I W Calculations (01/05/25 11:26) Hs Troponin I W Calculations (01/05/25 13:26) Procalcitonin (01/05/25 11:41) D-Dimer (01/05/25 11:48) Acetaminophen 1,000mg/100ml Iv (Ofirmev (01/05/25 11:50) Normal Saline 1000ml (0.9% Sodium Chlori (01/05/25 12:55) Cta Chest Pe (01/05/25 ) Iohexol 350mg/Ml 100ml (Omnipaque 350mg/ (01/05/25 13:03) Ceftriaxone 2gm/D5w 50ml Bag (Rocephin 2 (01/05/25 14:05) Azithromycin/Ns 500mg/250ml (Zithromax/N (01/05/25 14:05) Drug Screen, Urine (01/05/25 15:10) Vital Signs 01/05/25 01/05/25 01/05/25 01/05/25 11:24 12:10 12:30 13:39 Temp 98.5 Pulse 76 60 60 Resp 12 18 16 B/P (MAP) 97/69 103/63 (76) 104/61 (75) Pulse Ox 93 98 98 O2 Flow Rate 0 2.0 01/05/25 01/05/25 14:47 15:39 Pulse 58 64 Resp 11 13 B/P (MAP) 139/88 (105) 141/96 (111) Pulse Ox 95 98 O2 Flow Rate 2.0 2.0 Laboratory Tests Test 01/05/25 11:47 01/05/25 13:42 01/05/25 14:21 White Blood Count 6.8 Red Blood Count 5.47 Hemoglobin 13.9 Hematocrit 41.4 Mean Corpuscular Volume 75.7 L Mean Corpuscular Hemoglobin 25.4 L Mean Corpuscular Hemoglobin Concent 33.5 Red Cell Distribution Width 13.1 Platelet Count 272 Mean Platelet Volume 7.5 Neutrophils (%) (Auto) 47.7 Lymphocytes (%) (Auto) 29.7 Monocytes (%) (Auto) 10.4 Eosinophils (%) (Auto) 12.0 H Basophils (%) (Auto) 0.2 Neutrophils # (Auto) 3.2 Lymphocytes # (Auto) 2.0 Monocytes # (Auto) 0.7 Eosinophils # (Auto) 0.8 Basophils # (Auto) 0.0 CBC Comment D-Dimer 1.38 H D-Dimer Comment Sodium Level 138 Potassium Level 3.4 L Chloride Level 102 Carbon Dioxide Level 27.5 Anion Gap 9 Blood Urea Nitrogen 15 Creatinine 1.46 H Estimated GFR/1.73 m2 45 BUN/Creatinine Ratio 10.3 Glucose Level 114 H Calcium Level 9.2 Troponin I High Sensitivity 12 12 Pro-B-Type Natriuretic Peptide 344 H Albumin 3.2 L Procalcitonin < 0.05 Chemistry Comments Troponin I High Sens Percent Delta 0 Troponin I Hi Sens Absolute Change 0 SARS-CoV-2 Antigen (Rapid) Negative EKG/XRAY/CT/US/VASC/MRI CT : Impression Patient: SOPHIA SORENSON Record: [id number] [facility] 1970, Age: 54 Sex: Female Location: ER Patient Status: REG ER Service Date/Time: 01/05/25/ Ordering Physician: LILY PECK MD Exam: CTA CHEST PE Indication: chest pain sob Technique: CT axial images of the abdomen and pelvis are obtained with intrav enous contrast. Coronal and sagittal reformats were obtained. Radiation Dose Information: CTDI volume is 25 mGy. Dose-length product is 993 mGy*cm Comparison: None FINDINGS: No filling defect within the main left right pulmonary arteries. Segmental and subsegmental branches suboptimally opacified/ characterize. The trachea is patent. No pneumothorax. Diffuse bilateral pulmonary airspace consolidation, ground-glass disease. Heart normal in size there is extensive mediastinal and hilar lymphadenopathy. This includes a right hilar lymph node measuring 3.9 cm, subcarinal lymph node measuring 1.7 cm, pretracheal lymph node measuring 19 mm. Aortopulmonary lymph node measuring 25 mm. left hilar lymph node measuring 3 cm, pretracheal lymph node measuring 10 mm prevascular lymph node measuring 13 mm. Trace bilateral pleural effusions. IMPRESSION: No evidence for large pulmonary embolism. Extensive mediastinal and hilar lymphadenopathy with differential considerations including malignancy/ lymphoma, infectious, inflammatory etiologies. Diffuse bilateral pulmonary ground-glass disease/airspace consolidation which can be secondary to infectious, inflammatory etiologies. Follow-up to resolution. Trace bilateral pleural effusions. Other findings as described Electronically Signed by:WAN GARAY MD Date & Time: 01/05/25 1346 Dictated by: WAN GARAY MD Dictation date and time: 01/05/25 1346 Primary Care Provider: NO PRIMARY CARE PROVIDER cc: LILY PECK MD ~ Medical Decision Making Findings The patient presents with shortness of breath patient has been seen in the emergency room for shortness of breath prior and found to have a slightly elevated BNP patient had a CTA to rule out any pulmonary embolisms there was no pulmonary embolus appreciated but she does have diffuse infiltrates ground-glass opacities bilaterally given this finding the patient was recommended for admission the patient was given antibiotics to cover for community-acquired pneumonia. The patient is prior hospitalizations have been reviewed. The patient's shirt turner was interpreted as normal and adequate. The patient's labs have been reviewed. The case has been discussed with the hospitalist. The patient's EKG was interpreted by me as showing a normal sinus rhythm with a rate of 67 and a normal axis she does have some nonspecific ST abnormalities her EKG was interpreted by me as to be a borderline EKG. Departure Admitted to Inpatient Unit: yes, to hospitalist Impression: Primary Impression: Pneumonia Qualified Codes: J18.9 - Pneumonia, unspecified organism Referrals: NO PRIMARY CARE PROVIDER (PCP) Signature Scribe Signature: no scribe Attestation: The note accurately reflects work and decisions made by me.Lily Peck MD 01/07/25 05:24 LILY PECK MD Jan 05, 2025 11:37
--- NOTE | 2025-01-05 11:49 | RADIOLOGY REPORT ---
CHEST RADIOGRAPH Indication: CP Technique: Single frontal view of the chest was obtained COMPARISON: DI CHEST,TWO VIEWS on DOS: 12/23/24, DI CHEST,SINGLE VIEW on DOS: 07/27/24, DI CHEST,SINGLE VIEW on DOS: 07/12/24 FINDINGS: Lines and Tubes: None Lungs: Moderate diffuse multifocal bilateral pulmonary airspace disease. Pleura: No effusion. No pneumothorax. Cardiomediastinal contours: Unremarkable Bones: Unremarkable IMPRESSION: 1. Moderate diffuse multifocal bilateral pulmonary airspace disease.
[2025-01-05] MEDS: acetaminophen 1,000mg/100ml IV 100 ML IV ONE (12:05)
[2025-01-05 12:14] LABS: MEAN PLATELET VOLUME 7.5 FL (7.4-10.4); RED CELL DISTRIBUTION WIDTH 13.1 % (11.5-14.5)
[2025-01-05 12:43] LABS: CREATININE 1.46 MG/DL (0.40-0.90); PRO BRAIN NATRIURETIC PEPTIDE 344 PG/ML (0-125); TOTAL CARBON DIOXIDE 27.5 MMOL/L (24-32); eCRCL 48 ML/MIN; eGFR 45 ML/MIN
[2025-01-05] MEDS ORDERED: VENL-191 PO (13:24)
[2025-01-05] MEDS ORDERED: LOSA-418 PO (13:24)
[2025-01-05] MEDS ORDERED: AMLO2.5T2 PO (13:38)
[2025-01-05] MEDS ORDERED: TIRZ2.5P3 (13:38)
[2025-01-05] MEDS: normal saline 1000ML IV soln IVB ONE (13:38)
--- NOTE | 2025-01-05 13:47 | RADIOLOGY REPORT ---
Indication: chest pain sob Technique: CT axial images of the abdomen and pelvis are obtained with intravenous contrast. Coronal and sagittal reformats were obtained. Radiation Dose Information: CTDI volume is 25 mGy. Dose-length product is 993 mGy*cm Comparison: None FINDINGS: No filling defect within the main left right pulmonary arteries. Segmental and subsegmental branches suboptimally opacified/ characterize. The trachea is patent. No pneumothorax. Diffuse bilateral pulmonary airspace consolidation, ground-g lass disease. Heart normal in size there is extensive mediastinal and hilar lymphadenopathy. This includes a right hilar lymph node measuring 3.9 cm, subcarinal lymph node measuring 1.7 cm, pretracheal lymph node александр suring 19 mm. Aortopulmonary lymph node measuring 25 mm. left hilar lymph node measuring 3 cm, pretra cheal lymph node measuring 10 mm prevascular lymph node measuring 13 mm. Trace bilateral pleural effusions. IMPRESSION: No evidence for large pulmonary embolism. Extensive mediastinal and hilar lymphadenopathy with differential considerations including malignancy / lymphoma, infectious, inflammatory etiologies. Diffuse bilateral pulmonary ground-glass disease/airspace consolidation which can be secondary to inf ectious, inflammatory etiologies. Follow-up to resolution. Trace bilateral pleural effusions. Other findings as described
[2025-01-05] MEDS: CefTRIAXone 2gm/D5W 50ml BAG 50 ML IV ONE (14:16)
[2025-01-05] MEDS: azithromycin/NS 500mg/250ml 250 ML IV ONE (15:04)
[2025-01-05 15:39] VITALS: BP 141/96; PULSE 64; RESP 13; O2SAT 98
[2025-01-05] MEDS ORDERED: BUPRENORPHINE 8 MG SL SCH (15:55)
[2025-01-05] MEDS ORDERED: ondansetron/PF 4mg/2ml inj IV ONE (16:15)
[2025-01-05 16:49] LABS: URINE AMPHETAMINE SCREEN NEGATIVE (Neg); URINE BARBITUATE SCREEN NEGATIVE (Neg); URINE BENZODIAZEPINES SCREEN NEGATIVE (Neg); URINE CANNABINOID SCREEN NEGATIVE (Neg); URINE COCAINE SCREEN NEGATIVE (Neg); URINE METHADONE SCREEN NEGATIVE (Neg); URINE OPIATE SCREEN NEGATIVE (Neg); URINE PHENCYCLIDINE SCREEN NEGATIVE (Neg)
--- NOTE | 2025-01-05 17:34 | HISTORY AND PHYSICAL-Residence ---
History & Physical Providers to CC Resident Creating Document: ROXANA WEINSTEIN, LILA ~ History of Present Illness Primary Medical Doctor: Cristela govea Reason for Admit\Complaint: CHF History of Present Illness The patient is a 54-year-old female past medical history of CHF, meth abuse and IV drug abuse, hypertension, obesity, prediabetes, presented to the ED with complaints of chest pains and shortness of breath. She reported piercing chest pains which started yesterday evening which are intermittent and lasts for about 45 minutes each time, aggravates with deep inspiration. Patient also complained of shortness of breath during rest and also exertion since last two weeks. She complains of fatigue. She uses three pillows at night and has PND. No history of palpitations, syncope, cough, fevers. Allergies: Coded Allergies: No Known Allergies (Unverified , 01/05/25) Home Medications Home Medications Active Atarax* (Hydroxyzine HCl) 25 Mg Tablet 2 Tab PO TID PRN 30 Days Reported Zepbound (Tirzepatide) 2.5 Mg/0.5 Ml Pen.injctr Norvasc* (Amlodipine Besylate) 2.5 Mg Tablet 2 Tab PO DAILY 30 Days Cozaar (Losartan Potassium) 100 Mg Tablet 1 Tab PO DAILY 30 Days Effexor* (Venlafaxine HCl) 37.5 Mg Tablet 1 Tab PO QAM 30 Days Buprenorphine Hcl 8 Mg Tab.subl 1 Tab SL TID 30 Days Past Medical History Past Medical History Hep C infection Substance use disorder History of IV drug use Depression Prediabetes Past Surgical History Surgical History Comment Robotic laparoscopic cholecystectomy Past Social History Social History Comment Patient goes to [facility] for primary care. She smokes one pack of cigarettes per day. Denies alcohol consumption. Quit substance use and IV drug use on April 20, 2024. Ambulates independently without assistance. ROS All Other Systems: Reviewed and Negative ROS Constitutional: No fever, dizziness, weakness. no change in appetite/weight, reports fatigue HEENT: No blurring of the vision, No sore throat, epistaxis, tinnitus Cardiovascular: Reports chest pain/discomfort, no palpitations, syncope. No pedal edema Respiratory: Reports sob, no cough,, hemoptysis Gastrointestinal: No abdominal pain, nausea, vomiting. No diarrhea, constipation, melena. Genitourinary: No frquency, urgency, incontinence, nocturia. No dysuria, hematuria Musculoskeletal: No arthralgia, myalgia Endocrine: No fatigue, polydipsia, polyuria. No heat or cold intolerance Neurologic: No headache, vertigo. No weakness, numbness or tingling of extremities Psychiatric: No hallucinations/delusions, no anhedonia, no suicidal ideation Hematologic: No bleeding or bruises Exam Vitals: Vital Signs Date Time Temp Pulse Resp B/P (MAP) Pulse Ox O2 Delivery O2 Flow Rate FiO2 01/05/25 15:39 64 13 141/96 (111) 98 2.0 01/05/25 11:24 98.5 General: Adult female, alert and oriented x4, not in acute distress Head: Normocephalic with an atraumatic Eyes: Pupils- 3mm, reacting to light, conjunctiva- anicteric Nose and throat: No polyps, septum- normal, no mucosal ulcers Neck: Supple, no lymphadenopathy, no carotid bruit Respiratory: No use of accessory muscles of respiration, bibasilar crackles heard Cardiac: S1-S2 heard, rhythm regular, no gallop/murmur Abdomen: non distended, no tenderness, no organomegaly, bowel sounds - heard Extremities: no clubbing, no pedal edema, no deformities, peripheral pulses - 2+ Skin: warm and dry, no rash, no purpura Neuro: No focal deficit, gross cranial nerve exam - normal Diagnostic Data Last Recorded Lab Results: 01/05/25 1147 01/05/25 1147 Diagnostic Data: Laboratory Tests Test 01/05/25 11:47 D-Dimer 1.38 MG/L FEU (0-0.50) H D-Dimer Comment Additional Plan Community-acquired pneumonia covering Gram-negative and Gram-positive organisms Patient received IV ceftriaxone and azithromycin in the ER. No leukocytosis, normal procalcitonin. CTA chest to rule out PE and showed diffuse bilateral pulmonary ground-glass disease/air space consolidation which could be secondary to infectious process. Acute exacerbation of heart failure, unknown ejection fraction Chest x-ray showed pulmonary vascular congestion. We will start the patient on IV Lasix 40 mg b.i.d. History of IV drug use Substance use disorder Patient denies any current drug use. Urine tox screen negative. Code Status: Full code DVT Prophylaxis: Heparin Analgesia/Sedation: Tylenol Lines/Tubes: PIV Nutrition: Heart healthy diet Disposition: The patient was agitated and upset with the nurse and threatening to leave AMA. Risks and benefits explained. Roxana Weinstein MD Internal Medicine Resident PGY-2 Date of Service: Jan 05, 2025 Billing Provider: REHANA NOGUERA MD,ROXANA NORWOOD, RES Jan 05, 2025 17:34
[2025-01-05] MEDS ORDERED: magnesium hydroxide 30ml (MOM) UD suspension PO PRN (17:35)
[2025-01-05] MEDS ORDERED: magnesium Cl slow-release 64mg tablet PO PRN (17:35)
[2025-01-05] MEDS ORDERED: magnesium sulf-water 2g/50mL 50 ML IV PRN (17:35)
[2025-01-05] MEDS ORDERED: magnesium sulf-water 4G/100mL 100 ML IV PRN (17:35)
[2025-01-05] MEDS ORDERED: potassium Cl 20 mEq SR tablet PO PRN ×2 (17:35)
[2025-01-05] MEDS ORDERED: mag hydrox/Alum hydrox/simeth 30ml oral suspension PO PRN (17:35)
[2025-01-05] MEDS ORDERED: potassium Cl 40MEQ/1/2NS 520ml 520 ML IV PRN (17:35)
[2025-01-05] MEDS ORDERED: ondansetron/PF 4mg/2ml inj IV PRN (17:35)
[2025-01-05] MEDS ORDERED: K and/or MAG REPLACEMENT MC SCH (20:00)
[2025-01-05] MEDS ORDERED: docusate sod 100mg capsule PO SCH (20:00)
[2025-01-05] MEDS ORDERED: heparin, porcine 5000 units/ml vial SQ SCH (20:00)
[2025-01-05] MEDS ORDERED: non-formulary drug (Buprenorphine Hcl 1 TAB) SL SCH (21:00)
== END 2025-01-05 17:00 | disposition left against medical advice (07) | DRG 194 ==
LOC: ER 11:19 → ED HOLD 15:44
PROVIDERS: ADMIT Family Medicine; ATTEND Family Medicine
DX: I11.0 Hypertensive heart disease with heart failure (principal); J18.9 Pneumonia, unspecified organism; F17.210 Nicotine dependence, cigarettes, uncomplicated; I50.9 Heart failure, unspecified; Z53.29 Procedure and treatment not carried out because of patient's decision for other reasons; R73.03 Prediabetes; Z20.822 Contact with and (suspected) exposure to COVID-19; E66.9 Obesity, unspecified; F32.A Depression, unspecified; Z79.899 Other long term (current) drug therapy; Z68.41 Body mass index [BMI] 40.0-44.9, adult
CPT/HCPCS: 36415; 71045; 71275; 80048; 80305; 83880; 84145; 84484; 85025; 85379; 87811; 93005; 96365; 96367; 96375; 99285; G0378; J0131; J0456; J0696; J7030; Q9967

== ENCOUNTER 2025-01-06 22:12 | Emergency (ER) | payer MEDICAID ==
[~2025-01-06] VITALS: Ht 179.1 cm; Wt 135.5 kg
[~2025-01-06 22:12] MED LIST changes: +AMLO2.5T2 PO; -BUPR-726; -FLUO40CA; -GLEC1TAB; +LOSA-418 PO; -LOSA50TA64; +TIRZ2.5P3; +VENL-191 PO
--- NOTE | 2025-01-06 22:23 | ELECTROCARDIOGRAPH REPORT ---
[facility] Test Date: 2025-01-06 Test Time: 22:21:05 Pat Name: SOPHIA SORENSON Department: EMERGENCY ROOM Patient ID: [facility]-[id number] Room: Gender: F Childcare Aide: SARAH : 1970 Requested By: LILY PEREZ Order Number: [id number] Reading MD: Measurements Intervals Naoma Rate: 83 P: 13 AR: 198 QRS: 7 QRSD: 88 T: 47 QT: 468 QTc: 550 Interpretive Statements Sinus rhythm Probable left atrial enlargement Low voltage, precordial leads Borderline T abnormalities, anterior leads Minimal ST elevation, inferior leads Prolonged QT interval Baseline wander in lead(s) I,III,aVL,aVF Please click the below link to view image of tracing.
--- NOTE | 2025-01-06 22:54 | Physician Documentation ---
History of Present Illness General Chief Complaint: Chest Pain Stated Complaint: REEVAL Time Seen by MD: 22:53 Primary Medical Doctor: Cristela govea Mode of Arrival: POV History of Present Illness Initial Comments Patient is a 54-year-old female presents to to the emergency room with shortness of breath and pleuritic chest pain. The patient was going to be admitted to the hospital and she left against medical advice. The patient returns with continued shortness of breath and right-sided pleuritic chest pain. Patient denies any fevers or chills. Patient states she was told recently that she may have congestive heart failure. The patient does use methamphetamines. The patient denies any known cardiac history. The patient states her symptoms have been persistent. Patient denies any recent travel. Medication Reconciliation Allergies: Coded Allergies: No Known Allergies (Unverified , 01/05/25) Scheduled Amlodipine* (Norvasc*), 2 TAB PO DAILY, (Reported) Azithromycin (Zithromax), 1 TAB PO DAILY Buprenorphine Hcl (Buprenorphine Hcl), 1 TAB SL TID, (Reported) Losartan Potassium (Cozaar), 1 TAB PO DAILY, (Reported) Venlafaxine Hcl* (Effexor*), 1 TAB PO QAM, (Reported) Scheduled PRN Albuterol Sulfate (Ventolin Hfa), 2 PUFFS INH Q4HPRN PRN for SOB or wheezing Hydroxyzine Hcl* (Atarax*), 2 TAB PO TID PRN for anxiety Miscellaneous Medications Tirzepatide (Zepbound), (Reported) Discontinued Medications Bupropion HCl (Bupropion Xl), (Reported) Discontinued Reason: Other Fluoxetine Hcl (Fluoxetine Hcl), (Reported) Discontinued Reason: Other Glecaprevir/Pibrentasvir (Mavyret 100-40 mg Tablet), 3 DAILY, (Reported) Discontinued Reason: Other Losartan Potassium (Losartan Potassium), 1 DAILY, (Reported) Discontinued Reason: Other Past Medical History Past Medical History: No Pertinent History Physical Exam Physical Exam Vital Signs: Temperature: 97.7, Heart Rate: 86, Respiratory Rate: 14, BP: 143/94, Pulse Oximetry: 94, Weight: 135.500 Oxygen Flow Rate: 0 Physical Exam VITALS: Reviewed and as above. GENERAL: Alert, no apparent distress. HEENT: Normocephalic, atraumatic, PERRL, EOMI, dry mucosa, no erythema RESPIRATORY: Diminished breath sounds bilaterally no respiratory distress. CHEST: No accessory muscle use, no retractions CV: Regular rate, rhythm, no edema, no murmur, No: JVD GI: Soft, non-tender, bowels sounds present, no rebound, guarding, or rigidity BACK: No CVA tenderness, or swelling MUSCULOSKELETAL: No deformities, no edema SKIN: Warm and dry, no rash NEURO: Oriented x4, No motor or sensory deficit PSYCH: Normal mood and affect, no agitation Progress Results/Orders Results/Orders Orders - LILY PEREZ MD Chest,Single View (01/06/25 22:16) Monitor (01/06/25 22:16) Saline Lock (01/06/25 22:16) Oxygen (01/06/25 22:16) Hs Troponin I W Calculations (01/07/25 00:16) Hs Troponin I W Calculations (01/07/25 01:16) Svn Treatment (01/07/25 ) Completed Orders - LILY PEREZ MD Chest,Single View (01/06/25 22:16) Cbc/Diff (01/06/25 22:16) BMP (01/06/25 22:16) PBNP (01/06/25 22:16) Electrocardiogram (01/06/25 22:16) Hs Troponin I W Calculations (01/06/25 22:16) Procalcitonin (01/06/25 22:54) Ceftriaxone 2gm/D5w 50ml Bag (Rocephin 2 (01/06/25 23:10) Azithromycin Tablet (Zithromax Tablet) (01/06/25 23:10) Ipratropium/Albuterol Nebule (Ipratrop/A (01/07/25 01:45) Medications Received in ER Medications (Trade) Dose Ordered Sig/Dawson Route PRN Reason Start Time Stop Time Status Last Admin Dose Admin Ceftriaxone Sodium/Dextrose 50 ml @ 100 mls/hr ONCE ONCE IV 01/06/25 23:10 01/06/25 23:39 DC 01/07/25 00:15 100 MLS/HR (Zithromax tablet) 500 mg ONCE ONCE PO 01/06/25 23:10 01/06/25 23:20 DC 01/07/25 00:04 500 MG (ipratrop/ albuterol 0.5-3(2.5) MG/3ml nebule) 3 ml ONCE ONCE NEB 01/07/25 01:45 01/07/25 01:46 DC 01/07/25 01:59 3 ML Vital Signs 01/06/25 01/06/25 01/06/25 01/07/25 22:17 22:41 22:55 00:15 Temp 97.7 97.7 97.7 Pulse 86 80 69 Resp 14 16 16 B/P (MAP) 143/94 145/101 (116) 148/99 (115) Pulse Ox 94 93 98 O2 Flow Rate 0 0 0 01/07/25 01/07/25 01/07/25 01/07/25 01:09 02:00 02:05 02:42 Temp 97.7 97.7 Pulse 69 63 71 72 Resp 16 18 18 14 B/P (MAP) 133/92 (106) 143/90 Pulse Ox 98 93 94 96 O2 Delivery Room Air* Room Air* O2 Flow Rate 0 0 0 FiO2 21 21 Laboratory Tests Test 01/07/25 01:01 White Blood Count 7.3 Red Blood Count 5.75 H Hemoglobin 14.6 Hematocrit 43.5 Mean Corpuscular Volume 75.6 L Mean Corpuscular Hemoglobin 25.3 L Mean Corpuscular Hemoglobin Concent 33.5 Red Cell Distribution Width 13.0 Platelet Count 261 Mean Platelet Volume 7.3 L Neutrophils (%) (Auto) 48.7 Lymphocytes (%) (Auto) 26.0 Monocytes (%) (Auto) 11.6 Eosinophils (%) (Auto) 13.4 H Basophils (%) (Auto) 0.3 Neutrophils # (Auto) 3.5 Lymphocytes # (Auto) 1.9 Monocytes # (Auto) 0.8 Eosinophils # (Auto) 1.0 H Basophils # (Auto) 0.0 CBC Comment Sodium Level 140 Potassium Level 3.6 Chloride Level 104 Carbon Dioxide Level 27.1 Anion Gap 9 Blood Urea Nitrogen 13 Creatinine 1.02 H Estimated GFR/1.73 m2 68 BUN/Creatinine Ratio 12.7 Glucose Level 95 Calcium Level 9.3 Troponin I High Sensitivity 12 Troponin I High Sens Percent Delta 0 Troponin I Hi Sens Absolute Change 0 Pro-B-Type Natriuretic Peptide 374 H Albumin 3.0 L Procalcitonin < 0.05 Chemistry Comments EKG/XRAY/CT/US/VASC/MRI Chest X-Ray : Additional Comments Patient: SOPHIA SORENSON Medical Record: [id number] JOSEPH MOUNT STERLING : 1970, Age: 54 Sex: Female Location: ER Patient Status: REG ER Service Date/Time: 01/06/256 Ordering Physician: LILY PEREZ MD Exam: CHEST,SINGLE VIEW CHEST RADIOGRAPH Indication: CP Technique: 1 view Comparison: DI CHEST,SINGLE VIEW on DOS: 01/05/25, DI CHEST,SINGLE VIEW on DOS: 07/27/24, DI CHEST,SINGLE VIEW on DOS: 07/12/24 FINDINGS: Lines and Tubes: None Lungs/Pleura: Similar diffuse bilateral interstitial opacities. No evidence of consolidation or pleural abnormality. Cardiomediastinum: Unremarkable. Other: No acute osseous abnormality. IMPRESSION: 1. No significant change from the previous study. Diffuse interstitial opacities likely representing edema or atypical infection. Electronically Signed by:TING ZELAYA MD Date & Time: 01/06/252307 Dictated by: TING ZELAYA MD Dictation date and time: 01/06/252229 Primary Care Provider: NO PRIMARY CARE PROVIDER cc: LILY PEREZ MD ~ CT : Impression Patient: SOPHIA SORENSON Medical Record: [id number] JOSEPH MOUNT STERLING : 1970, Age: 54 Sex: Female Location: ER Patient Status: REG ER Service Date/Time: 01/05/25/ Ordering Physician: LILY PEREZ MD Exam: CTA CHEST PE Indication: chest pain sob Technique: CT axial images of the abdomen and pelvis are obtained with intravenous contrast. Coronal and sagittal reformats were obtained. Radiation Dose Information: CTDI volume is 25 mGy. Dose-length product is 993 mGy*cm Comparison: None FINDINGS: No filling defect within the main left right pulmonary arteries. Segmental and subsegmental branches suboptimally opacified/ characterize. The trachea is patent. No pneumothorax. Diffuse bilateral pulmonary airspace consolidation, ground-glass disease. Heart normal in size there is extensive mediastinal and hilar lymphadenopathy. This includes a right hilar lymph node measuring 3.9 cm, subcarinal lymph node measuring 1.7 cm, pretracheal lymph node measuring 19 mm. Aortopulmonary lymph node measuring 25 mm. left hilar lymph node measuring 3 cm, pretracheal lymph node measuring 10 mm prevascular lymph node measuring 13 mm. Trace bilateral pleural effusions. IMPRESSION: No evidence for large pulmonary embolism. Extensive mediastinal and hilar lymphadenopathy with differential considerations including malignancy/ lymphoma, infectious, inflammatory etiologies. Diffuse bilateral pulmonary ground-glass disease/airspace consolidation which can be secondary to infectious, inflammatory etiologies. Follow-up to resolution. Trace bilateral pleural effusions. Other findings as described Electronically Signed by:WAN GARAY MD Date & Time: 01/05/25 134 Dictated by: WAN GARAY MD Dictation date and time: 01/05/25 1346 Primary Care Provider: NO PRIMARY CARE PROVIDER cc: LILY PEREZ MD ~ Medical Decision Making Findings The patient's EKG was interpreted as a sinus rhythm with a rate of 83 with a normal axis the patient has nonspecific ST abnormalities and a prolonged QT interval EKG was interpreted as an abnormal EKG time of the EKG interpretation was 07/05/2020 the EKG was interpreted by myself. The patient's pulse oximetry was interpreted as normal and adequate. The patient's cardiac tech was interpreted as a sinus rhythm. Departure Disposition: HOME / SELF CARE / HOMELESS Impression: Primary Impression: Pneumonia Qualified Codes: J18.9 - Pneumonia, unspecified organism Discharge Instructions: Community-Acquired Pneumonia, Adult Additional Instructions: Follow up with your healthcare providers soon as possible. I do recommend he get a sleep study, and if her symptoms do not improve he will likely need to see a user experience manager. Return for worsening of your symptoms. Departure Forms: Excuse form Work or School Excused From: Work Excuse beginning now through the following date: Jan 07, 2025 May Return but still avoid physical Activity from now until: Jan 08, 2025 May Return to full physical activity as of: Jan 08, 2025 Referrals: NO PRIMARY CARE PROVIDER (PCP) Prescriptions Albuterol Sulfate (Ventolin Hfa) 90 Mcg Hfa.aer.ad 2 PUFFS INH Q4HPRN PRN for SOB or wheezing, #1 INHALER Prov: LILY PEREZ MD 01/07/25 Azithromycin (Zithromax) 250 Mg Tablet 1 TAB PO DAILY, #6 TAB azithromycin z pack as directed in packaging Prov: LILY PEREZ MD 01/07/25 LILY PEREZ MD Jan 06, 2025 22:54
--- NOTE | 2025-01-06 23:10 | RADIOLOGY REPORT ---
CHEST RADIOGRAPH Indication: CP Technique: 1 view Comparison: DI CHEST,SINGLE VIEW on DOS: 01/05/25, DI CHEST,SINGLE VIEW on DOS: 07/27/24, DI CHEST,SING LE VIEW on DOS: 07/12/24 FINDINGS: Lines and Tubes: None Lungs/Pleura: Similar diffuse bilateral interstitial opacities. No evidence of consolidation or pleu ral abnormality. Cardiomediastinum: Unremarkable. Other: No acute osseous abnormality. IMPRESSION: 1. No significant change from the previous study. Diffuse interstitial opacities likely representing edema or atypical infection.
[2025-01-07] MEDS: CefTRIAXone 2gm/D5W 50ml BAG 50 ML IV ONE (00:15)
[2025-01-07 01:21] LABS: MEAN PLATELET VOLUME 7.3 FL (7.4-10.4); RED CELL DISTRIBUTION WIDTH 13.0 % (11.5-14.5)
[2025-01-07 01:34] LABS: CREATININE 1.02 MG/DL (0.40-0.90); PRO BRAIN NATRIURETIC PEPTIDE 374 PG/ML (0-125); TOTAL CARBON DIOXIDE 27.1 MMOL/L (24-32); eCRCL 69 ML/MIN; eGFR 68 ML/MIN
[2025-01-07] MEDS ORDERED: ALBU18HF2 INH (01:37)
[2025-01-07] MEDS ORDERED: AZIT-164 PO (01:37)
[2025-01-07] MEDS: ipratropium/albuterol 3ml nebule NEB ONE (01:59)
[2025-01-07 02:00] VITALS: PULSE 63; RESP 18; O2SAT 93
[2025-01-07 02:05] VITALS: PULSE 71; RESP 18; O2SAT 94
[2025-01-07 02:42] VITALS: BP 143/90; PULSE 72; RESP 14; TEMP 97.7; O2SAT 96
== END 2025-01-07 02:47 | disposition home or self-care (01) ==
LOC: ER 22:12
DX: J18.9 Pneumonia, unspecified organism (principal); R07.89 Other chest pain; Z79.899 Other long term (current) drug therapy
CPT/HCPCS: 36415; 71045; 80048; 83880; 84145; 84484; 85025; 93005; 94640; 96365; 99285; J0696; 94760